=== PATIENT | male | born 1955 | race Two or more races ===

== ENCOUNTER 2021-10-13 07:21 | Day surgery (SDC) | payer MEDICARE, SELFPAY ==
[2021-10-08 11:47] VITALS: BMI 22.5
--- NOTE | 2021-10-09 08:04 | MHC.SHP ---
Pre-Procedural Eval Section A Date of Service: 10/09/21 The patient is an INPATIENT: No Changes since office visit: No Cold of Flu in the past 2 weeks, No New Medical Problems, No Changes in Medication and No Patient answered all questions The History & Physical has been completed within 30 days and I have reviewed it.: Yes Section B Chief Complaint: cataract Allergies: Allergies Allergy/AdvReac Type Severity Reaction Status Date / Time No Known Allergies Allergy Verified 10/08/21 12:39 Plan Diagnosis/Plan: Unchanged I have reviewed the history and physical and performed a pertinent physical examination on my patient. No changes have occurred unless specified.
--- NOTE | 2021-10-10 09:14 | HO.ANESPROP2 ---
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 BPH (benign prostatic hyperplasia) Carotid artery disease Cataract Cirrhosis of liver COVID-19 vaccine series completed Diabetes Fatty liver GERD (gastroesophageal reflux disease) Ground glass opacity present on imaging of lung Hearing loss Hepatitis C History of multiple strokes HTN (hypertension) Mild cognitive impairment Pericardial effusion Personal history of COVID-19 Pulmonary embolism associated with COVID-19 Wears dentures Surgical History Surgical History Hx of colonoscopy Social History Social History Patient Tobacco Use Status: Never used Tobacco Advance Directives: No Advance Directives Information Provided: Yes Meds Allergies Allergy/AdvReac Type Severity Reaction Status Date / Time No Known Allergies Allergy Verified 10/13/21 08:21 Home Medications Medication Instructions Recorded Confirmed Last Taken Type aspirin 81 mg tablet,delayed 1 tab PO DAILY 06/30/21 10/13/21 Unknown History release metformin 1,000 mg tablet 1 tab PO DAILY 06/30/21 10/13/21 10/13/21 06:00 History albuterol sulfate 90 mcg/actuation 2 puff INHALATION 6XD PRN 10/08/21 10/08/21 Unknown History aerosol inhaler (ProAir HFA) amlodipine 10 mg tablet 1 tab PO DAILY 10/08/21 10/08/21 Unknown History apixaban 5 mg (74 tabs) tablets in mg PO 10/08/21 10/12/21 History a dose pack (Eliquis DVT-PE Treat 30D Start) cholecalciferol (vitamin D3) 25 25 mcg PO DAILY 10/08/21 10/08/21 Unknown History mcg (1,000 unit) capsule (Vitamin D3) dulaglutide 0.75 mg/0.5 mL 0.75 mg SUBCUT QWEEK 10/08/21 10/08/21 Unknown History subcutaneous pen injector (Trulicity) esomeprazole magnesium 20 mg mg 10/08/21 Unknown History capsule,delayed release nadolol 40 mg tablet 40 mg PO DAILY 10/08/21 10/08/21 Unknown History rosuvastatin 5 mg tablet 5 mg PO DAILY 10/08/21 10/08/21 Unknown History zolpidem 5 mg tablet 5 mg PO BEDTIME PRN 10/08/21 10/08/21 Unknown History Exam Exam Date and Time: October 10, 2021 0914 Height,Weight and Vital Signs: Height 6 ft Weight 75.296 kg Assessment and Plan Assessment Anesthesia Assessment: Chart Reviewed Documented by User: Thong Flowers MD 10/13/21 08:34 [facility] Past Medical History Medical History (Updated 10/08/21 @ 11:42 by Nevin Montilla, [place]) Anxiety disorder 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 BPH (benign prostatic hyperplasia) Carotid artery disease Cataract Cirrhosis of liver COVID-19 vaccine series completed Diabetes Fatty liver GERD (gastroesophageal reflux disease) Ground glass opacity present on imaging of lung Hearing loss Hepatitis C History of multiple strokes HTN (hypertension) Mild cognitive impairment Pericardial effusion Personal history of COVID-19 Pulmonary embolism associated with COVID-19 Wears dentures Family History Family history of problems with anesthesia: No Surgical History Surgical History Hx of colonoscopy History of Problems with Anesthesia: No Social History Social History Patient Tobacco Use Status: Never used Tobacco Advance Directives: No Advance Directives Information Provided: Yes Meds Allergies Allergy/AdvReac Type Severity Reaction Status Date / Time No Known Allergies Allergy Verified 10/13/21 08:21 Home Medications Medication Instructions Recorded Confirmed Last Taken Type aspirin 81 mg tablet,delayed 1 tab PO DAILY 06/30/21 10/13/21 Unknown History release metformin 1,000 mg tablet 1 tab PO DAILY 06/30/21 10/13/21 10/13/21 06:00 History albuterol sulfate 90 mcg/actuation 2 puff INHALATION 6XD PRN 10/08/21 10/08/21 Unknown History aerosol inhaler (ProAir HFA) amlodipine 10 mg tablet 1 tab PO DAILY 10/08/21 10/08/21 Unknown History apixaban 5 mg (74 tabs) tablets in mg PO 10/08/21 10/12/21 History a dose pack (Eliquis DVT-PE Treat 30D Start) cholecalciferol (vitamin D3) 25 25 mcg PO DAILY 10/08/21 10/08/21 Unknown History mcg (1,000 unit) capsule (Vitamin D3) dulaglutide 0.75 mg/0.5 mL 0.75 mg SUBCUT QWEEK 10/08/21 10/08/21 Unknown History subcutaneous pen injector (Trulicity) esomeprazole magnesium 20 mg mg 10/08/21 Unknown History capsule,delayed release nadolol 40 mg tablet 40 mg PO DAILY 10/08/21 10/08/21 Unknown History rosuvastatin 5 mg tablet 5 mg PO DAILY 10/08/21 10/08/21 Unknown History zolpidem 5 mg tablet 5 mg PO BEDTIME PRN 10/08/21 10/08/21 Unknown History Exam Airway Mallampati Class: II TM Dist: >3cm Partial: Upper and Lower Loose/Missing/Broken Teeth: Yes Heart: rrr+[id number] Lungs: cta b/l Assessment and Plan Assessment Anesthesia Assessment: Anesthesia Plan Discussed Final Anesthetic Review Family History of Problems with Anesthesia: No History of Problems with Anesthesia: No NPO: Yes ASA Class: III Final Preanesthetic Review: No Changes in Pt Med Stat, Meds/Allgs Chart Reviewed, Consent Obtained/Reviewed and Anes Risks/Benef Reviewed Patient Risk: Intermediate Procedure Risk: Low Assessment/Block/Sedation in SS: Assess/Block/Sedation-SS Anesthetic Plan Anesthetic Plan: MAC: and Agree w/ Assess. and Plan Disposition: Standard PACU
[2021-10-13] MEDS: Tetracaine HCl/PF 0.5% Oph Sol 4 ML DROPS 1 DROP EYE-LEFT (08:36)
[2021-10-13] MEDS: Lactated Ringers 500 ML 50 ML IV (08:36)
[2021-10-13] MEDS: Tropicamide 1 % Ophth Sol 3 ML BTL 1 DROP EYE-LEFT ×3 (08:37→08:49)
[2021-10-13 08:38] VITALS: BMI 23.0
[2021-10-13] MEDS: Phenylephrine HCL 2.5% Oph SoL 2 ML BOTTLE 1 DROP EYE-LEFT ×3 (08:41→08:53)
[2021-10-13 08:47] LABS: Glucose, Whole Blood 102 mg/dL (60-115)
[2021-10-13 08:48] VITALS: BP 192/98; PULSE 75; RESP 16; TEMP 36.5; O2SAT 97
--- NOTE | 2021-10-13 09:26 | HO.PNOPHT ---
Ophthalmology Procedure Procedure Date of Service: 10/13/21 Ophthalmology Viscoelastic: Healkizzy Núñezt Dual Pack Pro Ophthalmology Lenses: TECTRUONG [id number] (22) Procedure Notes: PREOPERATIVE DIAGNOSIS: Decreased visual acuity left eye secondary to cataract POSTOPERATIVE DIAGNOSIS: Same PROCEDURE: Left cataract extraction with intraocular lens insertion SURGEON: Ronak Brizuela M.D. ANESTHESIA: Topical/MAC ESTIMATED BLOOD LOSS: None COMPLICATIONS: None After obtaining informed consent, the patient was brought to the operation room suite and placed in the supine position. After adequate sedation per anesthesia, topical drops of Tetracaine were given to the left eye. The eye was then prepped and draped in the usual sterile fashion. The operating room microscope was then positioned over the operative eye and a lid speculum placed. A paracentesis was created. Viscoelastic was then instilled into the anterior chamber. A three plane incision was then created temporally, utilizing a 2.85 mm keratome. Capsulotomy forceps were then utilized to create a circular tear capsulotomy. Hydrodissection and hydrodelineation were carried out until adequate mobilization of the nucleus occurred. Phacoemulsification was then utilized to remove the dense central nucleus followed by removal of the cortical material utilizing the automated aspiration irrigation unit. Viscoat elastic was instilled into the posterior capsular bag followed by placement of a posterior chamber intraocular lens without difficulty. The residual Viscoat elastic was then removed utilizing the automated IA machine. The wound was check and found to be watertight. The patient tolerated the procedure well and the lid speculum was removed. Intracameral injection of Vigamox 0.1 mL followed by a subtenon injection of Kenalog-40 0.2 mL were administered. The patient will be seen in the a.m.
[2021-10-13 09:50] VITALS: BP 136/84; PULSE 85; RESP 16; TEMP 36.4; O2SAT 99
== END 2021-10-13 09:56 | disposition home or self-care (01) ==
PROVIDERS: PCP Physician Assistant; Visit Provider Ophthalmology
PROC: (CPT 66985; principal; 2021-10-13 09:40)
DX: H25.12 Age-related nuclear cataract, left eye (principal); H54.7 Unspecified visual loss; I10 Essential (primary) hypertension; E78.5 Hyperlipidemia, unspecified; E11.3599 Type 2 diabetes mellitus with proliferative diabetic retinopathy without macular edema, unspecified eye; I26.93 Single subsegmental thrombotic pulmonary embolism without acute cor pulmonale; Z86.16 Personal history of COVID-19; I25.810 Atherosclerosis of coronary artery bypass graft(s) without angina pectoris; Z79.01 Long term (current) use of anticoagulants; Z79.84 Long term (current) use of oral hypoglycemic drugs; Z79.82 Long term (current) use of aspirin; Z79.899 Other long term (current) drug therapy; Z86.73 Personal history of transient ischemic attack (TIA), and cerebral infarction without residual deficits
CPT/HCPCS: 66984; 82947; J2250; J3010; J3300; V2632

== ENCOUNTER 2021-10-27 07:43 | Day surgery (SDC) | payer MEDICARE, SELFPAY ==
[2021-10-08 11:52] VITALS: BMI 22.5
--- NOTE | 2021-10-23 08:13 | MHC.SHP ---
Pre-Procedural Eval Section A Date of Service: 10/23/21 The patient is an INPATIENT: No Changes since office visit: No Cold of Flu in the past 2 weeks, No New Medical Problems, No Changes in Medication and No Patient answered all questions The History & Physical has been completed within 30 days and I have reviewed it.: Yes Section B Chief Complaint: cataract Allergies: Allergies Allergy/AdvReac Type Severity Reaction Status Date / Time No Known Allergies Allergy Verified 10/13/21 08:21 Plan Diagnosis/Plan: Unchanged I have reviewed the history and physical and performed a pertinent physical examination on my patient. No changes have occurred unless specified.
--- NOTE | 2021-10-23 12:17 | P.CONAN_ITS ---
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 BPH (benign prostatic hyperplasia) Carotid artery disease Cataract Cirrhosis of liver COVID-19 vaccine series completed Diabetes Fatty liver GERD (gastroesophageal reflux disease) Ground glass opacity present on imaging of lung Hearing loss Hepatitis C History of multiple strokes HTN (hypertension) Mild cognitive impairment Pericardial effusion Personal history of COVID-19 Pulmonary embolism associated with COVID-19 Wears dentures Family History Family history of problems with anesthesia: No Surgical History Surgical History Hx of colonoscopy History of Problems with Anesthesia: No Social History Social History Patient Tobacco Use Status: Never used Tobacco Use of substances other than those prescribed or required for medical reasons: No Are you DNR?: No Advance Directives: No Advance Directives Information Provided: Yes Meds Allergies Allergy/AdvReac Type Severity Reaction Status Date / Time No Known Allergies Allergy Verified 10/13/21 08:21 Home Medications Medication Instructions Recorded Confirmed Last Taken Type aspirin 81 mg tablet,delayed 1 tab PO DAILY 06/30/21 10/13/21 Unknown History release metformin 1,000 mg tablet 1 tab PO DAILY 06/30/21 10/13/21 10/13/21 06:00 History albuterol sulfate 90 mcg/actuation 2 puff INHALATION 6XD PRN 10/08/21 10/08/21 Unknown History aerosol inhaler (ProAir HFA) amlodipine 10 mg tablet 1 tab PO DAILY 10/08/21 10/08/21 Unknown History apixaban 5 mg (74 tabs) tablets in mg PO 10/08/21 10/12/21 History a dose pack (Eliquis DVT-PE Treat 30D Start) cholecalciferol (vitamin D3) 25 25 mcg PO DAILY 10/08/21 10/08/21 Unknown History mcg (1,000 unit) capsule (Vitamin D3) dulaglutide 0.75 mg/0.5 mL 0.75 mg SUBCUT QWEEK 10/08/21 10/08/21 Unknown History subcutaneous pen injector (Trulicity) esomeprazole magnesium 20 mg mg 10/08/21 Unknown History capsule,delayed release nadolol 40 mg tablet 40 mg PO DAILY 10/08/21 10/08/21 Unknown History rosuvastatin 5 mg tablet 5 mg PO DAILY 10/08/21 10/08/21 Unknown History zolpidem 5 mg tablet 5 mg PO BEDTIME PRN 10/08/21 10/08/21 Unknown History Exam Exam Date and Time: October 23, 2021 1217 Height,Weight and Vital Signs: Height 6 ft Weight 75.296 kg Assessment and Plan Assessment Anesthesia Assessment: Chart Reviewed Final Anesthetic Review Family History of Problems with Anesthesia: No History of Problems with Anesthesia: No Documented by User: Thong Flowers MD 10/27/21 06:30 [facility] Past Medical History Medical History (Updated 10/08/21 @ 11:42 by Nevin Montilla, RN) Anxiety disorder 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 BPH (benign prostatic hyperplasia) Carotid artery disease Cataract Cirrhosis of liver COVID-19 vaccine series completed Diabetes Fatty liver GERD (gastroesophageal reflux disease) Ground glass opacity present on imaging of lung Hearing loss Hepatitis C History of multiple strokes HTN (hypertension) Mild cognitive impairment Pericardial effusion Personal history of COVID-19 Pulmonary embolism associated with COVID-19 Wears dentures Surgical History Surgical History Hx of colonoscopy Social History Social History Patient Tobacco Use Status: Never used Tobacco Use of substances other than those prescribed or required for medical reasons: No Are you DNR?: No Advance Directives: No Advance Directives Information Provided: Yes Meds Allergies Allergy/AdvReac Type Severity Reaction Status Date / Time No Known Allergies Allergy Verified 10/13/21 08:21 Home Medications Medication Instructions Recorded Confirmed Last Taken Type aspirin 81 mg tablet,delayed 1 tab PO DAILY 06/30/21 10/13/21 Unknown History release metformin 1,000 mg tablet 1 tab PO DAILY 06/30/21 10/13/21 10/13/21 06:00 History albuterol sulfate 90 mcg/actuation 2 puff INHALATION 6XD PRN 10/08/21 10/08/21 Unknown History aerosol inhaler (ProAir HFA) amlodipine 10 mg tablet 1 tab PO DAILY 10/08/21 10/08/21 Unknown History apixaban 5 mg (74 tabs) tablets in mg PO 10/08/21 10/12/21 History a dose pack (Eliquis DVT-PE Treat 30D Start) cholecalciferol (vitamin D3) 25 25 mcg PO DAILY 10/08/21 10/08/21 Unknown History mcg (1,000 unit) capsule (Vitamin D3) dulaglutide 0.75 mg/0.5 mL 0.75 mg SUBCUT QWEEK 10/08/21 10/08/21 Unknown History subcutaneous pen injector (Trulicity) esomeprazole magnesium 20 mg mg 10/08/21 Unknown History capsule,delayed release nadolol 40 mg tablet 40 mg PO DAILY 10/08/21 10/08/21 Unknown History rosuvastatin 5 mg tablet 5 mg PO DAILY 10/08/21 10/08/21 Unknown History zolpidem 5 mg tablet 5 mg PO BEDTIME PRN 10/08/21 10/08/21 Unknown History Exam Airway Mallampati Class: III TM Dist: >3cm Neck ROM: Full Loose/Missing/Broken Teeth: Yes Heart: rrr+s1s2 Lungs: cta b/l Assessment and Plan Assessment Anesthesia Assessment: Anesthesia Plan Discussed Final Anesthetic Review NPO: No ASA Class: III Final Preanesthetic Review: No Changes in Pt Med Stat, Meds/Allgs Chart Reviewed, Consent Obtained/Reviewed and Anes Risks/Benef Reviewed Patient Risk: Intermediate Procedure Risk: Low Assessment/Block/Sedation in SS: Assess/Block/Sedation-SS Anesthetic Plan Anesthetic Plan: MAC: and Agree w/ Assess. and Plan Disposition: Standard PACU
[2021-10-27 08:52] VITALS: BP 174/84; PULSE 71; RESP 16; TEMP 36.4; O2SAT 100
[2021-10-27] MEDS: Tetracaine HCl/PF 0.5% Oph Sol 4 ML DROPS 1 DROP EYE-RIGHT (08:54)
[2021-10-27] MEDS: Lactated Ringers 500 ML 50 ML IV (08:58)
[2021-10-27] MEDS: Tropicamide 1 % Ophth Sol 3 ML BTL 1 DROP EYE-RIGHT ×3 (08:58→09:10)
[2021-10-27] MEDS: Phenylephrine HCL 2.5% Oph SoL 2 ML BOTTLE 1 DROP EYE-RIGHT ×3 (09:01→09:16)
[2021-10-27 09:21] LABS: Glucose, Whole Blood 124 mg/dL (60-115)
--- NOTE | 2021-10-27 09:37 | HO.PNOPHT ---
Ophthalmology Procedure Procedure Date of Service: 10/27/21 Ophthalmology Viscoelastic: Jeanine Núñezt Dual Pack Pro Ophthalmology Lenses: TECTRUONG [id number] (22) Procedure Notes: PREOPERATIVE DIAGNOSIS: Decreased visual acuity right eye secondary to cataract POSTOPERATIVE DIAGNOSIS: Same PROCEDURE: Right cataract extraction with intraocular lens insertion SURGEON: Ronak Brizuela M.D. ANESTHESIA: Topical/MAC ESTIMATED BLOOD LOSS: None COMPLICATIONS: None After obtaining informed consent, the patient was brought to the operating room suite and placed in the supine position. After adequate sedation per anesthesia, topical drops of Tetracaine were given to the right eye. The eye was then prepped and draped in the usual sterile fashion. The operating room microscope was then positioned over the operative eye and a lid speculum placed. A paracentesis was created. Viscoelastic was then instilled into the anterior chamber. A three plane incision was then created temporally, utilizing a 2.85 mm keratome. Capsulotomy forceps were then utilized to create a circular tear capsulotomy. Hydrodissection and hydrodelineation were carried out until adequate mobilization of the nucleus occurred. Phacoemulsification was then utilized to remove the dense central nucleus followed by removal of the cortical material utilizing the automated aspiration irrigation unit. Viscoelastic was instilled into the posterior capsular bag followed by placement of a posterior chamber intraocular lens without difficulty. The residual Viscoelastic was then removed utilizing the automated IA machine. The wound was checked and found to be watertight. The patient tolerated the procedure well and the lid speculum was removed. Intracameral injection of Vigamox 0.1 mL followed by a subtenon injection of Kenalog-40 0.2 mL were administered. The patient will be seen in the a.m.
[2021-10-27 10:05] VITALS: BP 143/84; PULSE 75; RESP 16; TEMP 36.1; O2SAT 100
== END 2021-10-27 10:20 | disposition home or self-care (01) ==
PROVIDERS: PCP Physician Assistant; Visit Provider Ophthalmology
PROC: (CPT 66985; principal; 2021-10-27 10:30)
DX: H25.11 Age-related nuclear cataract, right eye (principal); H54.7 Unspecified visual loss; E78.5 Hyperlipidemia, unspecified; I25.810 Atherosclerosis of coronary artery bypass graft(s) without angina pectoris; I10 Essential (primary) hypertension; E11.9 Type 2 diabetes mellitus without complications; I26.99 Other pulmonary embolism without acute cor pulmonale; B18.2 Chronic viral hepatitis C; Z79.84 Long term (current) use of oral hypoglycemic drugs; Z79.02 Long term (current) use of antithrombotics/antiplatelets; Z86.16 Personal history of COVID-19
CPT/HCPCS: 66984; 82947; J2250; J3010; J3300; V2632